=== PATIENT | male | born 1975 | race Native Hawaiian/Other Pacific Islander ===

== ENCOUNTER 2020-02-11 10:21 | Outpatient (CLI) | payer OTHER | END 2020-02-11 22:23 | disposition home or self-care (01) | LOC: LABW 10:21 → LAB 10:21 → LABW 22:23 | DX: Z20.828 Contact with and (suspected) exposure to other viral communicable diseases (principal) | CPT/HCPCS: 87635; G2023; U0002 ==

== ENCOUNTER 2021-11-24 14:08 | Outpatient (CLI) | payer BC | END 2021-11-24 19:40 | disposition home or self-care (01) | LOC: RAD 14:08 | PROVIDERS: ATTEND Nurse Practitioner Family | DX: J44.9 Chronic obstructive pulmonary disease, unspecified (principal) ==